=== PATIENT | male | born 1990 | race Caucasian/White ===

== ENCOUNTER 2016-11-27 17:09 | Emergency (ER) | payer OTHER ==
[2016-11-27 17:50] LABS: AMPHETAMINES NEGATIVE (NEGATIVE); BARBITURATES NEGATIVE (NEGATIVE); BENZODIAZEPINES NEGATIVE (NEGATIVE); COCAINE NEGATIVE (NEGATIVE); MARIJUANA (THC) NEGATIVE (NEGATIVE); METHADONE NEGATIVE (NEGATIVE); TRICYCLIC ANTIDEPRESSANT NEGATIVE (NEGATIVE)
[2016-11-27 18:33] LABS: BASOPHIL 0.6 % (0-2); EOSINOPHIL 2.6 % (0-5); HCT 42.6 % (42.0-52.0); HGB 14.8 g/dl (13.2-18.0); LYMPHOCYTE 36.9 % (15-48); MCH 31.2 pg (25.0-31.0); MCHC 34.7 g/dL (32.0-36.0); MCV 89.9 fL (78.0-100.0); MONOCYTE 5.6 % (0-12); NEUTROPHIL 54.3 % (41-80); PLT 221 K/uL (150-400); RBC 4.74 M/uL (4.70-6.00); RDW 13.7 % (11.5-14.0); WBC 6.2 K/uL (4.0-10.5)
[2016-11-27 18:52] LABS: CREATININE 0.9 mg/dL (0.7-1.2); POTASSIUM 3.8 mmol/L (3.5-5.1)
== END 2016-11-27 19:55 | disposition other institution (70) ==
LOC: FER 17:09
PROVIDERS: Nurse Practitioner
DX: R45.851 Suicidal ideations (principal); F32.9 Major depressive disorder, single episode, unspecified; Z88.0 Allergy status to penicillin; Z79.899 Other long term (current) drug therapy
CPT/HCPCS: 36415; 80048; 80305; 85025; 99285; G0480